=== PATIENT | female | born 1940 | race Caucasian/White ===

== ENCOUNTER 2018-08-06 08:24 | Emergency (ER) | payer SELFPAY ==
[2018-08-06] MEDS: HYDROCODONE/APAP (5/325) TAB PO (09:10)
[2018-08-06] MEDS: LIDOCAINE 1% (MDV) 20 ML INJ SC (09:12)
== END 2018-08-06 12:00 | disposition home or self-care (01) ==
LOC: FTE 08:24
DX: S61.215A Laceration without foreign body of left ring finger without damage to nail, initial encounter (principal); S61.412A Laceration without foreign body of left hand, initial encounter; R93.0 Abnormal findings on diagnostic imaging of skull and head, not elsewhere classified; W25.XXXA Contact with sharp glass, initial encounter; Y92.89 Other specified places as the place of occurrence of the external cause
CPT/HCPCS: 12002; 70450; 73090-RT; 73130-LT; 73510; 99284-25

== ENCOUNTER 2018-08-08 11:04 | Emergency (ER) | payer SELFPAY | END 2018-08-08 13:57 | disposition home or self-care (01) | LOC: FTE 11:04 | DX: Z48.01 Encounter for change or removal of surgical wound dressing (principal) | CPT/HCPCS: 99281 ==

== ENCOUNTER 2019-02-14 18:38 | Emergency (ER) | payer OTHER | END 2019-02-14 22:04 | disposition home or self-care (01) | LOC: FTE 18:38 | DX: S80.02XA Contusion of left knee, initial encounter (principal); W18.30XA Fall on same level, unspecified, initial encounter; Y92.9 Unspecified place or not applicable | CPT/HCPCS: 73562; 99283-25 ==